=== PATIENT | female | born 1985 | race Caucasian/White ===

== ENCOUNTER 2023-03-15 13:00 | Outpatient (CLI) | payer OTHER | END 2023-03-15 13:15 | disposition home or self-care (01) | LOC: LAB.N 13:00 | PROVIDERS: ATTEND Specialist | DX: L03.039 Cellulitis of unspecified toe (principal) | CPT/HCPCS: 87070; 87205 ==

== ENCOUNTER 2023-10-16 13:33 | Emergency (ER) | payer OTHER ==
--- NOTE | 2023-10-16 13:45 | ED Physician Documentation ---
PD HPI HEADACHE - Stated complaint Stated Complaint: PRATER, DIZZY, N,V - History obtained from History obtained from: Patient - History of Present Illness Timing - onset: Today Timing - onset during: Light activity Timing - duration: Hours Timing - details: Abrupt onset, Still present Worst headache ever?: No: Worst headache ever? Location: Front, Right Quality: Throbbing, Aching Associated symptoms: Nausea, Vomiting. No: Fever, Stiff neck, Weakness, Numbness Contributing factors: No: Hypertension, Recent illness, Trauma Similar symptoms before: Diagnosis (migraines frequently, about every 1-2 weeks.) Recently seen: Not recently seen Review of Systems Constitutional: denies: Fever, Chills Nose: denies: Rhinorrhea / runny nose, Congestion Throat: denies: Sore throat Respiratory: denies: Cough GI: reports: Nausea, Vomiting. denies: Diarrhea Neurologic: reports: Headache. denies: Focal weakness, Altered mental status, Head injury PD PAST MEDICAL HISTORY - Past Medical History Cardiovascular: None Respiratory: None Neuro: Migraines - Present Medications Home Medications: Ambulatory Orders Medication Instructions Recorded Confirmed Magnesium Oxide [Mag Ox] 400 mg PO DAILY 10/16/23 10/16/23 Ondansetron Odt [Zofran] 4 mg TL Q6H PRN #20 tablet 10/16/23 Propranolol HCl 20 mg PO BID 10/16/23 10/16/23 Rizatriptan Benzoate [Rizatriptan] 10 mg PO DAILY PRN 10/16/23 10/16/23 lamoTRIgine [LaMICtal] 25 mg PO DAILY #30 tablet 10/16/23 - Allergies Allergies/Adverse Reactions: Allergies Allergy/AdvReac Type Severity Reaction Status Date / Time No Known Drug Allergies Allergy Verified 10/16/23 13:47 PD ED PE NORMAL - Vitals Vital signs reviewed: Yes - General General: Alert and oriented X 3, Well developed/nourished, Other (appears in pain due to hedache. Otherwise pleasant and conversant. ) - Derm Derm: Normal color, Warm and dry - Neuro Neuro: Alert and oriented X 3, No motor deficit, No sensory deficit, Normal speech Eye Opening: Spontaneous Motor: Obeys Commands Verbal: Oriented GCS Score: 15 - Psych Psych: Normal mood Results - Vitals Vitals: Vital Signs - 24 hr 10/16/23 15:46 Heart Rate 66 Respiratory 16 Rate Blood Pressure 130/78 O2 Saturation 98 Oxygen O2 Source Room air PD Medical Decision Making - ED course Complexity details: re-evaluated patient (Much improved with now minimal residual headache and still getting better. She does feel comfortable going home. We discussed potentially adding other prophylactic medications as she stated she was getting improvement but still frequent enough headaches after the propranolol x 6 months.), considered differential (pt states character and sym ptoms are c/w her migraines. Home meds work most of the time, but not always. ), d/w patient ED course: The patient had an onset of migraine like symptoms this morning. She tried her rizatriptan twice but had emesis with both. No home antiemetics. She has had frequent migraines for the last year or so. She has seen her provider about them. Has been prescribed propranolol a few months ago and has had a decrease in the frequency but still approximately once every 1 or 2 weeks. Her medicines work most of the time. No red flag symptoms, and in particular no recent injury, fevers, viral illness, focal weakness or other concerns. Given the typical symptoms for migraine for her without any red flags, we can empirically treat with IV fluids and a combination of Toradol, Compazine, Benadryl. Departure - Departure Disposition: 01 Home, Self Care Clinical Impression: Migraine headache Condition: Stable Record reviewed to determine appropriate education?: Yes Instructions: ED Headache Migraine Follow-Up: [facility] [Provider Group] Prescriptions: lamoTRIgine [LaMICtal] 25 mg PO DAILY #30 tablet Ondansetron Odt [Zofran] 4 mg TL Q6H PRN #20 tablet PRN Reason: Nausea / Vomiting Comments: It is good that your headache is improved now. It does sound like your typical migraine so we did not do any other testing or such at this time. Continue with your current propranolol magnesium. For subsequent headaches, you can continue taking the rizatriptan. You can use it in conjunction with or preceded by Zofran/ondansetron for nausea so you are able to take your medicines better. You could use also ibuprofen or Tylenol in conjunction with these. As you have still been having frequent enough headaches with your propranolol and magnesium, as we discussed it could be reasonable to add another antimigraine medication daily. I wrote a prescription for you for 1 called lamotrigine. It is a low-dose and take it once daily. Follow-up with your primary care regarding the frequency and severity of her migraines with this added over the next 2 to 3 weeks. See if they want to change it or increase the dosing based on its initial effect. I sent prescriptions to your preferred pharmacy. Return to the ER if needed. Forms: PCP List Discharge Date/Time: 10/16/23 16:02
[2023-10-16] MEDS: PROCHLORPERAZINE 10 MG/2 ML VIAL IVP STA (14:13)
[2023-10-16] MEDS: KETOROLAC 15 MG/ML VIAL IVP STA (14:14)
[2023-10-16] MEDS: DEXAMETHASONE 10 MG/ML VIAL IVP STA (14:14)
[2023-10-16] MEDS: diphenhydrAMINE INJ 50 MG/ML VIAL IVP STA (14:14)
[2023-10-16] MEDS: SODIUM CHLORIDE 0.9% 1,000 ML IV STA (14:15)
[2023-10-16 15:57] VITALS: BP 130/78; O2SAT 98
== END 2023-10-16 16:02 | disposition home or self-care (01) ==
LOC: ED 13:33
DX: G43.909 Migraine, unspecified, not intractable, without status migrainosus (principal)
CPT/HCPCS: 96374; 96375; 99283; J1200